=== PATIENT | female | born 1945 | race Caucasian/White ===

== ENCOUNTER 2024-12-22 11:34 | Observation (INO) | payer MEDICARE, BC ==
[~2024-12-22] VITALS: Ht 154.9 cm; Wt 55.9 kg
[2024-12-22 13:22] LABS: BASO # 0.0 10^3/uL (0.0-0.2); BASO % 0.3 % (0.0-1.0); EOS # 0.0 10^3/uL (0.0-0.5); EOS % 0.1 % (0.0-3.0); LYMPH # 1.1 10^3/uL (1.5-5.0); LYMPH % 8.6 % (24.0-44.0); MONO # 0.6 10^3/uL (0.0-0.8); MONO % 4.9 % (2.0-8.0); NEUTROPHILS # 11.1 10^3/uL (1.5-8.5); NEUTROPHILS % 84.6 % (36.0-66.0); PLATELET COUNT, AUTOMATED 206 10^3/uL (150-450)
[2024-12-22] MEDS ORDERED: ISOVUE-370 76% 100 ML VIAL As Ordered ONE (13:24)
[2024-12-22 13:56] LABS: CK-MB VALUE MASS 1.1 NG/ML (<3.6)
[2024-12-22 13:58] LABS: KETONE, URINE MANUAL REFLEX NEGATIVE (NEGATIVE); NITRITE, URINE MANUAL RFX NEGATIVE (NEGATIVE); PROTEIN, URINE MANUAL REFLEX 1+ mg/dL (NEGATIVE); SP GRAVITY,URINE MANUAL REFLEX 1.010 (1.002-1.035); UROBILINOGEN, UA MANUAL REFLEX NORMAL (NORMAL)
[2024-12-22 13:59] LABS: SQUAMOUS EPITHELIAL URINE RFX SMALL AMOUNT /hpf (SMALL AMT)
[2024-12-22] MEDS: FAMOTIDINE 20 MG/2 ML VIAL IVP ONE (13:59)
[2024-12-22] MEDS: NS (Normal Saline) 0.9% 1,000 ML IV ONE (13:59)
[2024-12-22] MEDS: ONDANSETRON 4MG 2ML VIAL IV ONE (13:59)
[2024-12-22 14:00] LABS: ALT/SGPT 30.0 U/L (7.0-40); AST/SGOT 51.0 U/L (<34); CALCIUM LEVEL 8.8 MG/DL (8.3-10.6); CARBON DIOXIDE LEVEL 25.0 MMOL/L (20-31); CHLORIDE LEVEL 101.0 MMOL/L (98-107); CREATININE FOR GFR 0.67 MG/DL (0.55-1.30); GLOMERULAR FILTRATION RATE 88.3 (>32); POTASSIUM SERUM 4.8 MMOL/L (3.5-5.1); SODIUM LEVEL 140.0 MMOL/L (136-145)
[2024-12-22 14:00] LABS: HYALINE CAST, URINE RFX NONE SEEN /lpf (0-1); MICROSCOPIC EXAM RFX UNSPUN
[2024-12-22] MEDS: MORPHINE 2 MG/ML 1 ML VIAL IV PRN (14:00)
[2024-12-22 14:29] LABS: CPK CREATINE PHOSPHOKINASE 36.0 U/L (34-145); MB/CK RELATIVE INDEX 3.05 (< OR =4)
[2024-12-22 15:35] LABS: INR 1.26
[2024-12-22] MEDS ORDERED: GABA-1171 PO (15:44)
[2024-12-22] MEDS ORDERED: TRAZ1TAB14 PO (15:44)
[2024-12-22] MEDS ORDERED: ATOR40TA75 PO (15:44)
[2024-12-22] MEDS ORDERED: LEVO75TA4 PO (15:44)
[2024-12-22] MEDS ORDERED: FAMO1TAB11 PO (15:44)
[2024-12-22] MEDS ORDERED: BUPR150T12 (15:44)
[2024-12-22] MEDS ORDERED: PANT40TA29 PO (15:44)
[2024-12-22] MEDS: cefTRIAXone SOD 1 GM in DEXTROSE 5% (D5W) ADV/MINI-BAG 50 ML IV ONE (17:23)
[2024-12-22] MEDS: DOXYCYCLINE HYCLATE 100 MG TABLET PO ONE (17:23)
[2024-12-22] MEDS ORDERED: ONDANSETRON 4MG 2ML VIAL IV PRN (17:35)
[2024-12-22] MEDS ORDERED: HOME MED LIST COMPLETE! XX SCH (17:55)
[2024-12-22 18:18] LABS: C REACTIVE PROTEIN QUANTITATIV 31.43 MG/DL (<1.0)
[2024-12-22 18:45] VITALS: BP 135/66; TEMP 98.2; O2SAT 93
[2024-12-22] MEDS: GABAPENTIN 100 MG CAP PO SCH (23:18)
[2024-12-22] MEDS: traZODone 50 MG TAB PO SCH (23:18)
[2024-12-23 03:53] VITALS: BP 102/61; TEMP 97.9
[2024-12-23 05:50] LABS: PLATELET COUNT, AUTOMATED 194 10^3/uL (150-450)
[2024-12-23 06:29] LABS: ALT/SGPT 132 U/L (7.0-40); AST/SGOT 141 U/L (<34); CALCIUM LEVEL 8.4 MG/DL (8.3-10.6); CARBON DIOXIDE LEVEL 25 MMOL/L (20-31); CHLORIDE LEVEL 107 MMOL/L (98-107); CREATININE FOR GFR 0.69 MG/DL (0.55-1.30); GLOMERULAR FILTRATION RATE 87.7 (>32); POTASSIUM SERUM 3.7 MMOL/L (3.5-5.1); SODIUM LEVEL 142 MMOL/L (136-145)
[2024-12-23] MEDS: LEVOTHYROXINE 75 MCG TABLET (0.075 MG) PO SCH (06:38)
[2024-12-23 08:24] LABS: HEPATITIS C VIRUS ABY INDEX < 0.02 INDEX (<0.8)
[2024-12-23] MEDS: DOXYCYCLINE HYCLATE 100 MG TABLET PO SCH (08:52)
[2024-12-23] MEDS: ATORVASTATIN 20 MG TAB PO SCH (08:52)
[2024-12-23] MEDS: PANTOPRAZOLE 40MG TAB PO SCH (08:53)
[2024-12-23] MEDS: FAMOTIDINE 20 MG TAB PO SCH (08:53)
[2024-12-23] MEDS: cefTRIAXone SOD 1 GM in DEXTROSE 5% (D5W) ADV/MINI-BAG 50 ML IV SCH (08:53)
[2024-12-23] MEDS: ENOXAPARIN 40 MG/0.4 ML SYRINGE (J1650 PER 10MG) SC SCH (08:53)
[2024-12-23 11:30] VITALS: BP 121/61; TEMP 97.9; O2SAT 95
[2024-12-23] MEDS ORDERED: DOXY100C3 PO (11:33)
[2024-12-23] MEDS ORDERED: CEFD1CAP9 PO (11:33)
[2024-12-23 12:00] VITALS: O2SAT 95
== END 2024-12-23 13:54 | disposition home or self-care (01) ==
LOC: M ED 11:34 → EEVIPCON 11:35 → M ED INP 11:35 → M MSPAV 18:45
PROVIDERS: ADMIT Internal Medicine; ATTEND Internal Medicine
DX: R91.8 Other nonspecific abnormal finding of lung field (principal); R06.02 Shortness of breath; R05.8 Other specified cough; D72.829 Elevated white blood cell count, unspecified; R11.2 Nausea with vomiting, unspecified; D53.9 Nutritional anemia, unspecified; R74.01 Elevation of levels of liver transaminase levels; R35.0 Frequency of micturition; A49.8 Other bacterial infections of unspecified site; K21.9 Gastro-esophageal reflux disease without esophagitis; Z86.73 Personal history of transient ischemic attack (TIA), and cerebral infarction without residual deficits; F39 Unspecified mood [affective] disorder; F10.90 Alcohol use, unspecified, uncomplicated; Z85.42 Personal history of malignant neoplasm of other parts of uterus; Z90.79 Acquired absence of other genital organ(s); M54.50 Low back pain, unspecified; G89.29 Other chronic pain; M25.50 Pain in unspecified joint; Z80.9 Family history of malignant neoplasm, unspecified; Z79.899 Other long term (current) drug therapy
CPT/HCPCS: 36415; 71045; 74177; 76705; 80047; 80048; 80053; 80074; 80076; 81000; 81015; 82550; 82553; 83605; 83690; 84145; 84484; 85025; 85027; 85610; 85730; 86140; 87088; 87186; 87486; 87581; 87633; 87641; 87798; 93005; 93041; 96365; 96372; 96375; 96376; 97161; 99285; G0378; J0696; J1308; J1650; J2405; Q9967